=== PATIENT | male | born 1995 | race Caucasian/White ===

== ENCOUNTER 2020-04-19 13:06 | Emergency (ER) | payer BC, SELFPAY ==
[2020-04-19 13:10] VITALS: BP 126/67; PULSE 73; RESP 20; TEMP 36.8; O2SAT 96; BMI 27.6
--- NOTE | 2020-04-19 13:37 | HMH.EDUTC ---
[facility] [place] Disposition Clinical Impression: Plantar fasciitis of left foot, Athlete's foot on left Disposition: Home, Self-Care Condition on Discharge: Good Instructions: Plantar Fasciitis, DI for Plantar Fasciitis Additional Instructions: Take the ibuprofen regularly for the next few days. Rest for the next couple of days. Follow up with the financial services specialist (Dr. Milner) if your symptoms continue. GO TO THE ER FOR ANY WORSENING SYMPTOMS OR CONCERNS Prescriptions: Ibuprofen [Ibuprofen 800mg Tablet] 800 mg PO Q8HP PRN #30 tab PRN Reason: Moderate Pain Transmission Status: Received by [facility] # Clotrimazole 30 gm TP BID 14 Days #1 tube Transmission Status: Received by [facility] # Referrals: PCP,Karla [Primary Care Provider] - Eleni Milner DPM [Staff Physician] - Forms: Work/School Release Time of Disposition: 13:47 Medical Decision Making - Medical Records Medical records reviewed: No: I reviewed the patient's medical records. - Vidal Inquiry Pt receiving controlled substance: No Vital Signs: 04/19/20 13:10 04/19/20 14:08 Temperature 98.2 F 98.2 F Temperature Source Oral Pulse Rate 73 Pulse Rate [Right Brachial] 73 Respiratory Rate 20 20 Blood Pressure 126/67 Blood Pressure [Right Arm] 126/67 Blood Pressure Mean [Right Arm] 86 Blood Pressure Source [Right Arm] Automatic Cuff Blood Pressure Position [Right Arm] Sitting 02 Sat by Pulse Oximetry 96 Oxygen Delivery Method Room Air [facility] [place] HPI - General Stated complaint: left foot pain pain, no AO Time Seen by Provider: 04/19/20 13:37 Mode of Arrival: Ambulatory Source of Information: Patient Limitations: No Limitations Description of Symptoms (Recalled from Triage Doc. by RN): PATIENT C/O PAIN TO LEFT HEEL, BALLS AND OUTSIDE OF LEFT FOOT SINCE SUNDAY. HE STATES HE GOT HIS FOOT WET AT WORK AND IT REMAINED WET FOR APPROX 12 HOURS; PAIN STARTED AFTER THAT HEENT Symptoms (Recalled from RN notes): No Resp Symptoms (Recalled from RN notes): No Skin Symptoms (Recalled from RN notes): No MS Symptoms (Recalled from RN notes): No Functional Status (Recalled from RN notes): WNL - History of Present Illness Provider Complaint: He states that over the past 3 days he has had pain in the bottom of his left foot. He denies any injury. He states the symptoms are worse in the morning when he first gets up. He cannot identify anything that helps the pain other than sitting down and getting off his feet. He also has some areas of atheletes foot on that foot. - Related Data Previous Rx's Medication Instructions Recorded Ibuprofen [Ibuprofen 600mg 600 mg PO Q6HP PRN #30 tab 06/08/19 Tablet] Methocarbamol [Robaxin 500mg Tab] 500 mg PO BIDP PRN #30 tab 06/08/19 Clotrimazole 30 gm TP BID 14 Days #1 tube 04/19/20 Ibuprofen [Ibuprofen 800mg 800 mg PO Q8HP PRN #30 tab 04/19/20 Tablet] Allergies Allergy/AdvReac Type Severity Reaction Status Date / Time aripiprazole [From [facility]] Allergy Verified 06/08/19 15:41 - Worker's Comp Is this a Worker's Comp case?: No [facility] History - Hepatitis A Screen Drug use history?: No High risk sexual behaviors?: No History of sexually transmitted infection?: No Currently employed?: No Childcare worker?: No Do you have indoor plumbing?: Yes Do you have electricity?: Yes Attestation statement:: This patient has been screened for Hepatitis A risk factors. I have reviewed the patient's past medical history: Yes - Social History Alcohol Intake: never Occupational Status: other ROS Obtained: Yes All systems reviewed & no additional complaints - Constitutional Constitutional: Reports system reviewed and no additional complaints, except as docu - Eyes Eyes: Reports system reviewed and no additional complaints, except as docu - ENT Ears, Nose, Mouth, and Throat: Reports system reviewed and no additional complaints, except as docu - [facility]
[2020-04-19 14:08] VITALS: BP 126/67; PULSE 73; RESP 20; TEMP 36.8; O2SAT 96
== END 2020-04-19 14:10 | disposition home or self-care (01) ==
PROVIDERS: Emergency Provider Nurse Practitioner Family
DX: M72.2 Plantar fascial fibromatosis (principal); B35.2 Tinea manuum
CPT/HCPCS: 99201

== ENCOUNTER 2020-04-26 20:56 | Emergency (ER) | payer BC, SELFPAY ==
[2020-04-26 21:00] VITALS: BP 137/86; PULSE 108; RESP 20; TEMP 37; O2SAT 98; BMI 27.6
[2020-04-26 21:21] LABS: UTC Strep Screen (Rapid) Negative (Negative)
--- NOTE | 2020-04-26 21:21 | HMH.EDUTC ---
[facility] [place] Clinical Impression: Encounter for laboratory testing for COVID-19 virus Otitis media Qualifiers: Otitis media type: unspecified Laterality: left Qualified Code(s): H66.92 - Otitis media, unspecified, left ear Disposition: Home, Self-Care Condition on Discharge: Good Instructions: Middle Ear Infection Additional Instructions: *Monitor Temp, Over the counter Motrin or Tylenol as directed/as needed Tylenol every 4 hours and Motrin every 6 hours (as long as your family doctor has told you that you can take it) for fever or pain. and straight to ER if unable to lower temp less than 101.0 after medication given *Warm salt water gargles may help to soothe the throat *Throat Lozenges *Warm fluids like tea with honey may help to soothe the throat *Sleep elevated *Humidifier/Vaporizer *Flonase or nasocort as prescribed in each nostril daily but be aware that it may take 2-3 days before you notice improvement Your throat swab was sent for culture. Those results are typically sent to your primary care. Be sure to follow up in 2-3 days with your family doctor/primary care physician if no improvement so they can review those result and treat if necessary. If you don?t have a primary care doctor, I recommend you get one but in the mean time, you will have to return to a walk in clinic Follow up IMMEDIATELY for new or worsening symptoms or no Noticeable improvement over the next 48-72 hours. 911 for difficulty breathing or swallowing You was tested for today for COVID19 your test result should be back in the next 24-48 hours, you may call to the [facility] later today or tomorrow to see if your test results are back and the result [phone] [facility] hours are 9am-9pm You was given a handout with instructions for Self Quarantine and Self isolation for while you wait on test results and what to do if they are positive If you are positive the Health Dept will be contacting you also Prescriptions: Amoxicillin [Amoxicillin 500mg Cap] 500 mg PO TID #30 cap Transmission Status: Pending to [facility] [employer] #[id number] Referrals: PCP,No [Primary Care Provider] - As needed Time of Disposition: 21:28 Medical Decision Making - Vidal Inquiry Pt receiving controlled substance: No Vidal was queried for this patient: No Vital Signs: 04/26/20 21:00 Temperature 98.6 F Temperature Source Oral Pulse Rate [Right Brachial] 108 H Respiratory Rate 20 Blood Pressure [Right Arm] 137/86 Blood Pressure Mean [Right Arm] 103 Blood Pressure Source [Right Arm] Automatic Cuff Blood Pressure Position [Right Arm] Sitting 02 Sat by Pulse Oximetry 98 Oxygen Delivery Method Room Air Orders (Tests/Meds): ORDERS Category Date Time Status Covid-19 Nasal PCR Sendout Karl Routine Lab 04/26/20 21:00 Received [facility] [place] HPI - General Stated complaint: COVID Testing Time Seen by Provider: 04/26/20 21:21 Mode of Arrival: Ambulatory Source of Information: Patient Limitations: No Limitations Description of Symptoms (Recalled from Triage Doc. by RN): PATIENT REQUESTING COVID TEST D/T POSSIBLE EXPOSURE; C/O SORE THROAT, COUGH, HEADACHE, AND WEAKNESS X 2-3 DAYS HEENT Symptoms (Recalled from RN notes): Yes Resp Symptoms (Recalled from RN notes): Yes Skin Symptoms (Recalled from RN notes): No MS Symptoms (Recalled from RN notes): No Functional Status (Recalled from RN notes): WNL - History of Present Illness Provider Complaint: Patient state that he wants to get checked for COVID States that he may have been exposed States that he has been having sinus pain and pressure along with sore throat, ears feeling full, and feeling tired and headache for several days States that tonight he was feeling worse so he come in to get checked - Related Data Previous Rx's Medication Instructions Recorded Ibuprofen [Ibuprofen 600mg 600 mg PO Q6HP PRN #30 tab 06/08/19 Tablet] Methocarbamol [Robaxin 500mg Tab] 500 mg PO BIDP PRN #30 tab 06/08/19 Ap[facility]
[2020-04-26 21:22] LABS: UTC Influenza A Antigen Negative (Negative); UTC Influenza B Antigen Negative (Negative)
[2020-04-26 21:32] VITALS: BP 137/86; PULSE 108; RESP 20; TEMP 37; O2SAT 98
[2020-04-28 15:37] LABS: Covid-19 Nasal PCR Sendout Lex Not Detected
== END 2020-04-26 21:40 | disposition home or self-care (01) ==
PROVIDERS: Emergency Provider Nurse Practitioner
DX: Z20.828 Contact with and (suspected) exposure to other viral communicable diseases (principal); H66.92 Otitis media, unspecified, left ear; J45.909 Unspecified asthma, uncomplicated; Z88.8 Allergy status to other drugs, medicaments and biological substances
CPT/HCPCS: 87804; 87880; 99202; U0004

== ENCOUNTER 2020-08-31 15:44 | Emergency (ER) | payer SELFPAY ==
[2020-08-31 15:57] VITALS: BP 130/66; PULSE 87; RESP 16; TEMP 36.7; O2SAT 98; BMI 21.4
--- NOTE | 2020-08-31 16:02 | HMH.EDUTC ---
[facility] [place] Clinical Impression: Otitis media Qualifiers: Otitis media type: unspecified Laterality: left Qualified Code(s): H66.92 - Otitis media, unspecified, left ear Disposition: Home, Self-Care Condition on Discharge: Good Instructions: Middle Ear Infection, Middle Ear Infections (Alternative Therapy), Amoxicillin, Prednisone Additional Instructions: *Monitor Temp, Over the counter Motrin or Tylenol as directed/as needed Tylenol every 4 hours and Motrin every 6 hours (as long as your family doctor has told you that you can take it) for fever or pain. and straight to ER if unable to lower temp less than 101.0 after medication given *Warm salt water gargles may help to soothe the throat *Throat Lozenges *Warm fluids like tea with honey may help to soothe the throat *Sleep elevated *Humidifier/Vaporizer *Flonase 2 sprays in each nostril daily but be aware that it may take 2-3 days before you notice improvement Take medication as prescribed Return if needed Straight to ER if any life threatening symptoms Follow up IMMEDIATELY for new or worsening symptoms or no Noticeable improvement over the next 48-72 hours. 911 for difficulty breathing or swallowing Prescriptions: Amoxicillin [Amoxicillin 500mg Cap] 500 mg PO TID #30 cap Transmission Status: Pending to [facility] # predniSONE [Deltasone 10mg tablet] 10 mg PO BID 5 Days #10 tab Transmission Status: Pending to [facility] # Referrals: PCP,No [Primary Care Provider] - As needed Time of Disposition: 16:13 Medical Decision Making - Vidal Inquiry Pt receiving controlled substance: No Vidal was queried for this patient: No Vital Signs: 08/31/20 15:57 Temperature 98.1 F Temperature Source Oral Pulse Rate [Right] 87 Respiratory Rate 16 Blood Pressure [Right Arm] 130/66 Blood Pressure Mean [Right Arm] 87 Blood Pressure Source [Right Arm] Automatic Cuff Blood Pressure Position [Right Arm] Sitting 02 Sat by Pulse Oximetry 98 Oxygen Delivery Method Room Air [facility] [place] - General Stated complaint: Upper Resp problems Time Seen by Provider: 08/31/20 16:02 Mode of Arrival: Ambulatory Source of Information: Patient Limitations: No Limitations Description of Symptoms (Recalled from Triage Doc. by RN): pt c/o ears hurting and headache, denies fever HEENT Symptoms (Recalled from RN notes): Yes (cough, ear pain) Resp Symptoms (Recalled from RN notes): No Skin Symptoms (Recalled from RN notes): No MS Symptoms (Recalled from RN notes): No Functional Status (Recalled from RN notes): na - History of Present Illness Provider Complaint: Patient states that he has been having pain in his left ear for over a week and feels pain and pressure in it like he has fluid in it and it has made him feel a little off balance States that also wanted to see if we had samples of inhalers because he has lost his insurance - Related Data Previous Rx's Medication Instructions Recorded Ibuprofen [Ibuprofen 600mg 600 mg PO Q6HP PRN #30 tab 06/08/19 Tablet] Methocarbamol [Robaxin 500mg Tab] 500 mg PO BIDP PRN #30 tab 06/08/19 Clotrimazole 30 gm TP BID 14 Days #1 tube 04/19/20 Ibuprofen [Ibuprofen 800mg 800 mg PO Q8HP PRN #30 tab 04/19/20 Tablet] Amoxicillin [Amoxicillin 500mg 500 mg PO TID #30 cap 04/26/20 Cap] Amoxicillin [Amoxicillin 500mg 500 mg PO TID #30 cap 08/31/20 Cap] predniSONE [Deltasone 10mg tablet] 10 mg PO BID 5 Days #10 tab 08/31/20 Allergies Allergy/AdvReac Type Severity Reaction Status Date / Time aripiprazole [From [facility]] Allergy Verified 06/08/19 15:41 - Worker's Comp Is this a Worker's Comp case?: No Is this an H Worker's Comp?: No Is this a Yasmeen Worker's Comp?: No [facility] History - Hepatitis A Screen Drug use history?: No High risk sexual behaviors?: No History of sexually transmitted infection?: No Currently employed?: No Childcare worker?: No Do you have indoor pl
[2020-08-31 16:25] VITALS: BP 130/66; PULSE 87; RESP 16; TEMP 36.7; O2SAT 98
== END 2020-08-31 16:25 | disposition home or self-care (01) ==
PROVIDERS: Emergency Provider Nurse Practitioner
DX: H66.92 Otitis media, unspecified, left ear (principal)
CPT/HCPCS: 99202; G0463

== ENCOUNTER 2020-12-03 13:11 | Emergency (ER) | payer BC, SELFPAY ==
[2020-12-03 13:16] VITALS: BP 126/70; PULSE 72; RESP 16; TEMP 36.5; O2SAT 100; BMI 28.0
[2020-12-03 13:34] VITALS: BP 122/75; PULSE 73; RESP 16; TEMP 36.5
--- NOTE | 2020-12-03 13:49 | HMH.EDUTC ---
[facility] [place] Disposition Clinical Impression: Right leg pain, Strain of right calf muscle Disposition: Home, Self-Care Condition on Discharge: Good Additional Instructions: Rest the extremity, apply ice for 15 minutes as tolerated three or four times per day, Elevate the extremity as tolerated while you are resting. Take ibuprofen for pain. I sent in a prescription to your pharmacy. Follow up with Dr. Vernon (orthopedics) if you continue to have issues. I put in a referral but you need to call his office and schedule an appointment. Follow up with your regular doctor. GO TO THE ER FOR ANY WORSENING SYMPTOMS Prescriptions: Ibuprofen [Ibuprofen 800mg Tablet] 800 mg PO Q8HP PRN #30 tab PRN Reason: Moderate Pain Transmission Status: Received by [facility] #[id number] Referrals: Provider,MD Nichole [Primary Care Provider] - Luca Vernon MD [Staff Physician] - Forms: Work/School Release Time of Disposition: 13:51 Medical Decision Making - Medical Records Medical records reviewed: No: I reviewed the patient's medical records. - Vidal Inquiry Pt receiving controlled substance: No Vital Signs: 12/03/20 13:16 12/03/20 13:34 Temperature 97.7 F 97.7 F Temperature Source Oral Pulse Rate 73 Pulse Rate [Right] 72 Respiratory Rate 16 16 Blood Pressure 122/75 Blood Pressure [Right Arm] 126/70 Blood Pressure Mean [Right Arm] 88 02 Sat by Pulse Oximetry 100 Oxygen Delivery Method Room Air Medical Decision Narrative: He has a negative samuel's sign. [facility] [place] HPI - General Stated complaint: leg pain, no accident Time Seen by Provider: 12/03/20 13:20 Mode of Arrival: Ambulatory Source of Information: Patient Limitations: No Limitations Description of Symptoms (Recalled from Triage Doc. by RN): pt c/o of R leg pain from the top of his ankle to upper leg. pt thinks he may have pulled something during his six hour physical for [employer]. pt also states the arch in his R foot has been hurting since he has been placing most of his wt on that leg. 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 He did this physical evaluation 3 days ago, then that evening he began having right calf pain that is worse with walking. He denies any personal or family history of blood clots. He denies any swelliing or warmth of the affected leg. He denies any chest pain or shortness of breath. - Related Data Previous Rx's Medication Instructions Recorded Ibuprofen [Ibuprofen 600mg 600 mg PO Q6HP PRN #30 tab 06/08/19 Tablet] Methocarbamol [Robaxin 500mg Tab] 500 mg PO BIDP PRN #30 tab 06/08/19 Clotrimazole 30 gm TP BID 14 Days #1 tube 04/19/20 Ibuprofen [Ibuprofen 800mg 800 mg PO Q8HP PRN #30 tab 04/19/20 Tablet] Amoxicillin [Amoxicillin 500mg 500 mg PO TID #30 cap 04/26/20 Cap] Amoxicillin [Amoxicillin 500mg 500 mg PO TID #30 cap 08/31/20 Cap] predniSONE [Deltasone 10mg tablet] 10 mg PO BID 5 Days #10 tab 08/31/20 Ibuprofen [Ibuprofen 800mg 800 mg PO Q8HP PRN #30 tab 12/03/20 Tablet] Allergies Allergy/AdvReac Type Severity Reaction Status Date / Time aripiprazole [From [facility]] Allergy Verified 12/03/20 13:19 - Worker's Comp Is this a Worker's Comp case?: No [facility] History - Hepatitis A Screen Drug use history?: No High risk sexual behaviors?: No History of sexually transmitted infection?: No Currently employed?: No Childcare worker?: No Do you have indoor plumbing?: Yes Do you have electricity?: Yes Attestation statement:: This patient has been screened for Hepatitis A risk factors. I have rev
== END 2020-12-03 14:05 | disposition home or self-care (01) ==
PROVIDERS: Emergency Provider Nurse Practitioner Family
DX: S86.811A Strain of other muscle(s) and tendon(s) at lower leg level, right leg, initial encounter (principal); X50.0XXA Overexertion from strenuous movement or load, initial encounter; Y92.89 Other specified places as the place of occurrence of the external cause

== ENCOUNTER 2020-12-31 19:29 | Emergency (ER) | payer BC, SELFPAY ==
[2020-12-31 19:35] VITALS: BP 148/84; PULSE 97; RESP 16; TEMP 36.4; O2SAT 98; BMI 28.0
--- NOTE | 2020-12-31 19:48 | HMH.EDUTC ---
[facility] [place] Disposition Clinical Impression: Otitis media Qualifiers: Otitis media type: unspecified Laterality: left Qualified Code(s): H66.92 - Otitis media, unspecified, left ear Disposition: Home, Self-Care Condition on Discharge: Good Instructions: Middle Ear Infections (Alternative Therapy), Middle Ear Infection, Amoxicillin Additional Instructions: *Monitor Temp, Over the counter Motrin or Tylenol as directed/as needed Tylenol every 4 hours and Motrin every 6 hours (as long as your family doctor has told you that you can take it) for fever or pain. and straight to ER if unable to lower temp less than 101.0 after medication given *Warm salt water gargles may help to soothe the throat *Throat Lozenges *Warm fluids like tea with honey may help to soothe the throat *Sleep elevated *Humidifier/Vaporizer *Flonase 2 sprays in each nostril daily but be aware that it may take 2-3 days before you notice improvement Follow up IMMEDIATELY for new or worsening symptoms or no Noticeable improvement over the next 48-72 hours. 911 for difficulty breathing or swallowing You were tested for today for COVID19 your test result should be back in the next 24-48 hours, you may call to the [facility] to see if your test results are back in the next 48 hours [phone] [facility] hours are 9am-9pm You was given a handout with instructions for Self Quarantine and Self isolation for while you wait on test results and what to do if they are positive If you are positive the Health Dept will be contacting you also Prescriptions: Albuterol Sulfate [Proventil-HFA 90mcg/puff Inh] 1 - 2 puffs IH Q4HP PRN #1 inh PRN Reason: Shortness Of Breath Transmission Status: Pending to [facility] # Amoxicillin [Amoxicillin 875MG Tab] 875 mg PO Q12H #20 tab Transmission Status: Pending to [facility] # Fluticasone Propionate [Flonase 50mcg nasal spray 16gm] 1 spr NS DAILY #1 bottle Transmission Status: Pending to [facility] # Referrals: Provider,Referral, MD [Primary Care Provider] - As needed Time of Disposition: 20:03 Medical Decision Making - Vidal Inquiry Pt receiving controlled substance: No Vidal was queried for this patient: No Vital Signs: 12/31/20 19:35 Temperature 97.5 F L Temperature Source Oral Pulse Rate [Left] 97 H Respiratory Rate 16 Blood Pressure [Right Arm] 148/84 H Blood Pressure Mean [Right Arm] 105 02 Sat by Pulse Oximetry 98 Orders (Tests/Meds): ORDERS Category Date Time Status Covid-19 Nasal PCR ([facility]) Routine Lab 12/31/20 19:40 Received [facility] [place] HPI - General Stated complaint: covid test Time Seen by Provider: 12/31/20 19:48 Mode of Arrival: Ambulatory Source of Information: Patient Limitations: No Limitations Description of Symptoms (Recalled from Triage Doc. by RN): pt states he is soa (hx of asthma and is out of his rescue inhaler) and dizziness. HEENT Symptoms (Recalled from RN notes): Yes (dizzy) Resp Symptoms (Recalled from RN notes): Yes (soa) Skin Symptoms (Recalled from RN notes): No MS Symptoms (Recalled from RN notes): No Functional Status (Recalled from RN notes): na - History of Present Illness Provider Complaint: Patient states that he has been having pressure like feeling in his ears State that he gets frequent ear infections States that at times when he moves quickly he feels a little dizzy States that he also a history of asthma and he wanted to get another inhaler his is and not helping States that he also needed to get tested for COVID - Related Data Previous Rx's Medication Instructions Recorded Ibuprofen [Ibuprofen 600mg 600 mg PO Q6HP PRN #30 tab 06/08/19 Tablet] Methocarbamol [Robaxin 500mg Tab] 500 mg PO BIDP PRN #30 tab 06/08/19 Clotrimazole 30 gm TP BID 14 Days #1 tube 04/19/20 Ibuprofen [Ibuprofen 800mg 800 mg PO Q8HP PRN #30 tab 04/19/20 Tablet] Amoxicillin [Amoxicillin 500mg 500 mg PO TID #30 cap 04/26/20 Cap]
[2020-12-31 19:59] VITALS: BP 148/84; PULSE 97; RESP 16; TEMP 36.4
== END 2020-12-31 20:04 | disposition home or self-care (01) ==
PROVIDERS: Emergency Provider Nurse Practitioner
DX: H66.92 Otitis media, unspecified, left ear (principal); J45.909 Unspecified asthma, uncomplicated; Z20.822 Contact with and (suspected) exposure to COVID-19
CPT/HCPCS: 99202; G0463; U0003

== ENCOUNTER 2021-01-07 09:49 | Emergency (ER) | payer SELFPAY ==
[2021-01-07 09:55] VITALS: BP 112/77; PULSE 73; RESP 18; TEMP 36.7; O2SAT 96; BMI 28.0
--- NOTE | 2021-01-07 10:05 | XR_ITS ---
PROCEDURE: XR TIBIA FIBULA LT 2V CLINICAL INDICATION: PAIN TO LEFT CALF COMPARISON: No exams were available for comparison FINDINGS: No fracture or dislocation. No lytic or blastic change. There is normal mineralization. The joint spaces are well-preserved. No significant degenerative/arthritic changes. No erosive changes evident. Other findings:None. IMPRESSION: No acute findings. Dictated by: Weston Coles MD 01/07/2021 11:13 Weston oCles MD in [place] 01/07/2021 11:13
--- NOTE | 2021-01-07 10:12 | HMH.EDUTC ---
[facility] [place]: Strain of calf muscle Qualifiers: Encounter type: initial encounter Laterality: left Qualified Code(s): S86.812A - Strain of other muscle(s) and tendon(s) at lower leg level, left leg, initial encounter Disposition: Home, Self-Care Condition on Discharge: Good Instructions: Calf Muscle Strain, DI for Calf Muscle Strain, How To Perform RICE (Rest, Ice, Compress, Elevate), How to Apply an Prosper Wrap Additional Instructions: *weight bearing as tolerated *RICE, Rest the extremity, Ice 15-20 minutes 3-4 times daily, Compress- wear the prosper wrap as discussed as much as possible to help reduce swelling and pain, Elevate the extremity when at rest *Prosper wrap is for support and help control swelling, use it except in the shower. Be sure that is not to tight but not to loose either *Elevate when resting *Ibuprofen every 6-8 hours as needed for pain an inflammation. If need something more can take Tylenol in between doses of Ibuprofen to help Immediately follow up with your family doctor for new or worsening of symptoms, or no noticeable improvement over the next 3-5 days Prescriptions: Ibuprofen [Ibuprofen 600mg Tablet] 600 mg PO Q6HP PRN #20 tab PRN Reason: Moderate Pain Transmission Status: Received by [facility] #[id number] Referrals: Provider,Referral, [Primary Care Provider] - As needed Forms: Work/School Release Time of Disposition: 11:00 Medical Decision Making - Vidal Inquiry Pt receiving controlled substance: No Vidal was queried for this patient: No Vital Signs: 01/07/21 09:55 01/07/21 10:23 Temperature 98.0 F 98.0 F Temperature Source Temporal Artery Scan Pulse Rate 73 Pulse Rate [Right Brachial] 73 Respiratory Rate 18 18 Blood Pressure 112/77 Blood Pressure [Right Arm] 112/77 Blood Pressure Mean [Right Arm] 88 Blood Pressure Source [Right Arm] Automatic Cuff Blood Pressure Position [Right Arm] Sitting 02 Sat by Pulse Oximetry 96 Oxygen Delivery Method Room Air Orders (Tests/Meds): ORDERS Category Date Time Status Tibia/fibula XR left 2 views [XR tibia fibula LT 2V] Exams 01/07/21 10:05 Taken Stat - Radiology Data #1 Image(s): Tib/Fib Image Reviewed: Yes I reviewed the patient's radiology image Preliminary Findings: No Fracture [place]en [facility] [place] - General Stated complaint: a/o 01/07 slipped left calf injury Time Seen by Provider: 01/07/21 10:12 Mode of Arrival: Ambulatory Source of Information: Patient Limitations: No Limitations Description of Symptoms (Recalled from Triage Doc. by RN): PATIENT STATES HE FEELS LIKE HE PULLED HIS LEFT CALF MUSCLE WHEN HE SLIPPED AND CAUGHT HIMSELF FROM FALLING THIS MORNING HEENT Symptoms (Recalled from RN notes): No Resp Symptoms (Recalled from RN notes): No Skin Symptoms (Recalled from RN notes): No MS Symptoms (Recalled from RN notes): Yes Functional Status (Recalled from RN notes): WNL - History of Present Illness Provider Complaint: Patient state that he was walking to his car this morning and he stepped on a slick mat and hope did the splits States that he feels like he may have pulled something in his left calf area States that work sent him to get checked - Related Data Home Medications Medication Instructions Recorded Confirmed Fluticasone/Vilanterol [Breo 1 inh IH DAILY 01/07/21 01/07/21 Ellipta 100-25 Mcg INH] Previous Rx's Medication Instructions Recorded Ibuprofen [Ibuprofen 600mg 600 mg PO Q6HP PRN #20 tab 01/07/21 Tablet] Allergies Allergy/AdvReac Type Severity Reaction Status Date / Time aripiprazole [From [facility]] Allergy Verified 12/03/20 13:19 - Worker's Comp Is this a Worker's Comp case?: No [facility] History - Hepatitis A Screen Drug use history?: No High risk sexual behaviors?: No History of sexually transmitted infection?: No Currently employed?: No Childcare worker?: No Do you have indoor plumbing?: Yes Do you have el
[2021-01-07 10:23] VITALS: BP 112/77; PULSE 73; RESP 18; TEMP 36.7; O2SAT 96
== END 2021-01-07 10:59 | disposition home or self-care (01) ==
PROVIDERS: Emergency Provider Nurse Practitioner
DX: S86.812A Strain of other muscle(s) and tendon(s) at lower leg level, left leg, initial encounter (principal); W01.0XXA Fall on same level from slipping, tripping and stumbling without subsequent striking against object, initial encounter; Y92.89 Other specified places as the place of occurrence of the external cause
CPT/HCPCS: 73590; 99202; G0463

== ENCOUNTER → 2021-02-23 16:40 | Outpatient (CLI) | payer BC, SELFPAY | PROVIDERS: Visit Provider Nurse Practitioner | DX: Z20.822 Contact with and (suspected) exposure to COVID-19 (principal) | CPT/HCPCS: C9803; U0003; U0005 ==

== ENCOUNTER 2021-02-24 15:18 | Emergency (ER) | payer BC, SELFPAY ==
[2021-02-24 15:32] VITALS: BP 132/77; PULSE 91; RESP 19; TEMP 36.6; O2SAT 98; BMI 29.3
[2021-02-24 15:51] VITALS: BP 132/77; PULSE 91; RESP 19; TEMP 36.6
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
[2021-02-24 16:01] LABS: Adenovirus,PCR Not Detected (NotDetected); Bordetella Pertussis Not Detected (NotDetected); Chlamydophila Pneumoniae, PCR Not Detected (NotDetected); Coronavirus 19, PCR Not Detected (NotDetected); Coronavirus 229E Not Detected (NotDetected); Coronavirus NL63 Not Detected (NotDetected); Coronavirus OC43 Not Detected (NotDetected); Coronovirus HKU1,PCR Not Detected (NotDetected); Human Metapneumovirus Not Detected (NotDetected); Influenza A, PCR Not Detected (NotDetected); Influenza AH1, 2009 Not Detected (NotDetected); Influenza AH1, PCR Not Detected (NotDetected); Influenza AH3,PCR Not Detected (NotDetected); Influenza B, PCR Not Detected (NotDetected); Mycoplasma Pneumoniae, PCR Not Detected (NotDetected); Parainfluenza 1, PCR Not Detected (NotDetected); Parainfluenza 2, PCR Not Detected (NotDetected); Parainfluenza 3, PCR Not Detected (NotDetected); Parainfluenza 4, PCR Not Detected (NotDetected); Respiratory Syncytial Virus Not Detected (NotDetected); Rhinovirus/Enterovirus Not Detected (NotDetected)
== END 2021-02-24 16:04 | disposition home or self-care (01) ==
PROVIDERS: Emergency Provider Nurse Practitioner
DX: J06.9 Acute upper respiratory infection, unspecified (principal); Z20.822 Contact with and (suspected) exposure to COVID-19
CPT/HCPCS: 87581; 87632; 87798; 99203; C9803; G0463; U0003; U0005

== ENCOUNTER → 2021-05-29 17:09 | Outpatient (CLI) | payer BC, SELFPAY | PROVIDERS: Visit Provider Nurse Practitioner Family | DX: Z20.822 Contact with and (suspected) exposure to COVID-19 (principal) | CPT/HCPCS: C9803; U0003; U0005 ==

== ENCOUNTER → 2021-06-05 14:11 | Outpatient (CLI) | payer BC, SELFPAY | PROVIDERS: Visit Provider Nurse Practitioner Family | DX: Z20.822 Contact with and (suspected) exposure to COVID-19 (principal) | CPT/HCPCS: C9803; U0003; U0005 ==

== ENCOUNTER → 2021-06-13 14:31 | Outpatient (CLI) | payer BC, SELFPAY | PROVIDERS: Visit Provider Nurse Practitioner | DX: U07.1 COVID-19 (principal) | CPT/HCPCS: C9803; U0003; U0005 ==

== ENCOUNTER → 2021-07-27 15:33 | Outpatient (CLI) | payer BC, SELFPAY ==
[2021-07-27 19:08] LABS: Amphetamine/Metha Screen,Urine Negative ng/ml (<1000)
[2021-07-27 19:09] LABS: Barbiturates Screen,Urine Negative ng/ml (<200); Benzodiazepines Screen,Urine Negative ng/ml (<200)
[2021-07-27 19:10] LABS: Cannabinoid Screen,Urine Negative ng/ml (<50)
[2021-07-27 19:11] LABS: Cocaine Screen,Urine Negative ng/ml (<300); Methadone Screen,Urine Negative ng/ml (<300)
[2021-07-27 19:12] LABS: Opiate Screen,Urine Negative ng/ml (<300)
[2021-07-27 19:13] LABS: Phencyclidine Screen,Urine Negative ng/ml (<25)
== END ==
PROVIDERS: Visit Provider Registered Nurse Emergency
DX: F90.0 Attention-deficit hyperactivity disorder, predominantly inattentive type (principal)
CPT/HCPCS: 80305

== ENCOUNTER 2021-08-15 15:14 | Emergency (ER) | payer BC, SELFPAY ==
[2021-08-15 17:52] VITALS: BP 0/0; PULSE 0; RESP 0; TEMP -17.7; TEMP 0
== END 2021-08-15 17:53 | disposition left against medical advice (07) ==
LOC: UTC 15:18
PROVIDERS: Emergency Provider Nurse Practitioner Family
DX: Z53.21 Procedure and treatment not carried out due to patient leaving prior to being seen by health care provider (principal)

== ENCOUNTER 2021-08-15 18:22 | Emergency (ER) | payer BC, SELFPAY ==
[2021-08-15 19:30] VITALS: BP 131/79; PULSE 91; RESP 19; TEMP 36.9; O2SAT 98; BMI 27.1
[2021-08-15 19:48] LABS: UTC Influenza A Antigen Negative (Negative); UTC Influenza B Antigen Negative (Negative); UTC Strep Screen (Rapid) Negative (Negative)
--- NOTE | 2021-08-15 20:01 | HMH.EDUTC ---
[facility] [place] Impression: Viral syndrome Pharyngitis Qualifiers: Pharyngitis/tonsillitis etiology: unspecified etiology Qualified Code(s): J02.9 - Acute pharyngitis, unspecified Disposition: Home, Self-Care Condition on Discharge: Good Instructions: Preventing the Spread of Coronavirus Discharge Instructions, DI for Pharyngitis/Tonsillopharyngitis -- Adult Additional Instructions: Drink plenty of fluids. Take tylenol or ibuprofen for pain or fever. Take the medications as directed. Follow up with your regular doctor. GO TO THE ER FOR ANY WORSENING SYMPTOMS Quarantine until you know the results of your covid-19 test. Notify your school or workplace of your results and follow their instructions regarding return to work/school. Prescriptions: Brompheniramine/Pseudoephed/Dm [Bromfed Dm Cough Syrup] 5 ml PO Q6HP PRN #240 ml PRN Reason: Cough Transmission Status: Pending to [id number] Azithromycin [Z-Gautam 250mg Tab*] 250 mg PO UD DOSE PK #6 tab [facility] Referrals: Provider,Referral, [Primary Care Provider] - Forms: Work/School Release Time of Disposition: 20:40 Medical Decision Making - Medical Records Medical records reviewed: No: I reviewed the patient's medical records. - Vidal Inquiry Pt receiving controlled substance: No Vital Signs: 08/15/21 19:30 Temperature 98.4 F Temperature Source Oral Pulse Rate [Right Brachial] 91 H Respiratory Rate 19 Blood Pressure [Right Arm] 131/79 Blood Pressure Mean [Right Arm] 96 Blood Pressure Source [Right Arm] Automatic Cuff Blood Pressure Position [Right Arm] Sitting 02 Sat by Pulse Oximetry 98 Oxygen Delivery Method Room Air - Lab Data Lab results reviewed: Yes: I reviewed the patient's lab results. Lab Results 08/15/21 19:39: Influenza Type A Ag Negative, Influenza Type B Ag Negative 08/15/21 19:39: Strep Scn Rapid Clinic Negative Orders (Tests/Meds): ORDERS Category Date Time Status Covid-19 Nasal PCR ([facility]) Routine Lab 08/15/21 19:36 Received Strep Screen Confirmation Stat Micro 08/15/21 19:39 [place] [facility] [place] - General Stated complaint: runny nose,GATES,nausa, body aches Time Seen by Provider: 08/15/21 20:01 Mode of Arrival: Ambulatory Source of Information: Patient Limitations: No Limitations Description of Symptoms (Recalled from Triage Doc. by RN): PATIENT C/O HEADACHE, BODY ACHES, SORE THROAT, RUNNY NOSE, AND NAUSEA SINCE SUNDAY HEENT Symptoms (Recalled from RN notes): Yes Resp Symptoms (Recalled from RN notes): No Skin Symptoms (Recalled from RN notes): No MS Symptoms (Recalled from RN notes): No Functional Status (Recalled from RN notes): WNL - History of Present Illness Provider Complaint: He states that he began to feel bad last night. He has a sore throat, body aches, chills, fever, and a dry cough. He had covid about 8 months ago and he states that he felt - Related Data Home Medications Medication Instructions Recorded Confirmed Fluticasone/Vilanterol [Breo 1 inh IH DAILY 01/07/21 01/07/21 Ellipta 100-25 Mcg INH] Previous Rx's Medication Instructions Recorded Ibuprofen [Ibuprofen 600mg 600 mg PO Q6HP PRN #20 tab 01/07/21 Tablet] Brompheniramine/Pseudoephed/Dm 5 - 10 ml PO Q46H PRN #200 ml 02/24/21 [Bromfed Dm Cough Syrup] Ondansetron [Zofran 4mg ODT] 4 mg PO TIDP PRN #20 tab 02/24/21 Azithromycin [Z-Gautam 250mg Tab*] 250 mg PO UD DOSE PK #6 tab 08/15/21 Brompheniramine/Pseudoephed/Dm 5 ml PO Q6HP PRN #240 ml 08/15/21 [Bromfed Dm Cough Syrup] Allergies Allergy/AdvReac Type Severity Reaction Status Date / Time aripiprazole [From [facility]] Allergy Verified 12/03/20 13:19 - Worker's Comp Is this a Worker's Comp case?: No [facility] History - Hepatitis A Screen Drug use history?: No High risk sexual behaviors?: No History of sexually transmitted infection?: No Currently employed?: No
[2021-08-15 20:41] VITALS: BP 131/79; PULSE 91; RESP 19; TEMP 36.9; O2SAT 98
== END 2021-08-15 20:43 | disposition home or self-care (01) ==
PROVIDERS: Emergency Provider Nurse Practitioner Family
DX: J02.9 Acute pharyngitis, unspecified (principal)
CPT/HCPCS: 87804; 87880; 99212; C9803; G0463; U0003; U0005

== ENCOUNTER 2021-09-22 17:38 | Emergency (ER) | payer OTHER, SELFPAY ==
[2021-09-22 17:50] VITALS: PULSE 108; RESP 20; O2SAT 97; BMI 29.2
[2021-09-22 18:00] VITALS: BP 136/86; PULSE 76; RESP 16; TEMP 37; O2SAT 100; BMI 29.2
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
[2021-09-22 19:53] VITALS: BP 136/86; PULSE 76; RESP 18; TEMP 37; O2SAT 100
== END 2021-09-22 19:55 | disposition home or self-care (01) ==
PROVIDERS: Emergency Provider Nurse Practitioner
DX: S29.012A Strain of muscle and tendon of back wall of thorax, initial encounter (principal); V43.52XA Car driver injured in collision with other type car in traffic accident, initial encounter; Y92.488 Other paved roadways as the place of occurrence of the external cause
CPT/HCPCS: 72040; 72070; 99213; G0463

== ENCOUNTER 2022-01-24 16:40 | Emergency (ER) | payer BC, SELFPAY ==
--- NOTE | 2022-01-24 17:33 | HMH.EDUTC ---
[facility] [place] Impression: Viral syndrome, COVID-19 Disposition: Home, Self-Care Condition on Discharge: Good Instructions: DI for COVID-19 (Suspected or Confirmed ), Preventing the Spread of Coronavirus Discharge Instructions Additional Instructions: Drink plenty of fluids. Take tylenol or ibuprofen for pain or fever. Take the medications as directed. Follow up with your regular doctor. GO TO THE ER FOR ANY WORSENING SYMPTOMS Quarantine until you know the results of your covid-19 test. Notify your school or workplace of your results and follow their instructions regarding return to work/school. Prescriptions: Benzonatate [Benzonatate 100mg cap] 100 mg PO TIDP PRN #30 cap PRN Reason: Cough Transmission Status: Received by [id number] Promethazine HCl [Phenergan 25mg tab] 25 mg PO Q6H PRN #15 tab PRN Reason: Nausea And Vomiting Transmission Status: Received by [id number] Referrals: Provider,Referral, MD [Primary Care Provider] - Forms: Work/School Release Time of Disposition: 17:47 Medical Decision Making - Medical Records Medical records reviewed: No: I reviewed the patient's medical records. - Vidal Inquiry Pt receiving controlled substance: No Vital Signs: 01/24/22 17:49 01/24/22 17:54 Temperature 98.4 F 98.4 F Temperature Source Oral Pulse Rate 104 H Pulse Rate [Left] 104 H Respiratory Rate 16 16 Blood Pressure 126/78 Blood Pressure [Right Arm] 126/78 Blood Pressure Mean [Right Arm] 94 02 Sat by Pulse Oximetry 98 Orders (Tests/Meds): ORDERS Category Date Time Status Covid-19 Nasal PCR ([facility]) Routine Lab 01/24/22 17:33 [place] [facility] [place] - General Stated complaint: covid test Time Seen by Provider: 01/24/22 17:33 - History of Present Illness Provider Complaint: He states that for the past 2 day he has had sinus congestion, body aches, chills and he has felt bad. - Related Data Home Medications Medication Instructions Recorded Confirmed Fluticasone/Vilanterol [Breo 1 inh IH DAILY 01/07/21 01/07/21 Ellipta 100-25 Mcg INH] Previous Rx's Medication Instructions Recorded Ibuprofen [Ibuprofen 600mg 600 mg PO Q6HP PRN #20 tab 01/07/21 Tablet] Brompheniramine/Pseudoephed/Dm 5 - 10 ml PO Q46H PRN #200 ml 02/24/21 [Bromfed Dm Cough Syrup] Ondansetron [Zofran 4mg ODT] 4 mg PO TIDP PRN #20 tab 02/24/21 Azithromycin [Z-Gautam 250mg Tab*] 250 mg PO UD DOSE PK #6 tab 08/15/21 Brompheniramine/Pseudoephed/Dm 5 ml PO Q6HP PRN #240 ml 08/15/21 [Bromfed Dm Cough Syrup] Cyclobenzaprine HCl [Flexeril 10mg 10 mg PO Q8HP PRN #15 tab 09/22/21 tablet] Etodolac 200 mg PO Q8HP PRN #20 cap 09/22/21 Benzonatate [Benzonatate 100mg 100 mg PO TIDP PRN #30 cap 01/24/22 cap] Promethazine HCl [Phenergan 25mg 25 mg PO Q6H PRN #15 tab 01/24/22 tab] Allergies Allergy/AdvReac Type Severity Reaction Status Date / Time aripiprazole [From [facility]] Allergy Verified 12/03/20 13:19 [facility] History - Hepatitis A Screen Attestation statement:: This patient has been screened for Hepatitis A risk factors. I have reviewed the patient's past medical history: Yes - Social History Alcohol Intake: never Occupational Status: other ROS Obtained: Yes All systems reviewed & no additional complaints - Constitutional Constitutional: Reports as per HPI - Eyes Eyes: Denies eye discharge - ENT Ears, Nose, Mouth, and Throat: Reports as per HPI - Cardiovascular Cardiovascular: Denies chest pain Physical Exam - General General appearance: alert, in no apparent distress - Head Head exam: atraumatic, normocephalic, normal inspection - Eye Eye exam: Present: normal appearance, PERRL, EOMI - ENT ENT exam: Present: normal exam, normal oropharynx, mucous membranes moist, TM's normal bilaterally, normal external ear exam - Neck Neck exam: Present: normal inspection, full ROM, tra
[2022-01-24 17:49] VITALS: BP 126/78; PULSE 104; RESP 16; TEMP 36.9; O2SAT 98; BMI 28.8
[2022-01-24 17:54] VITALS: BP 126/78; PULSE 104; RESP 16; TEMP 36.9
== END 2022-01-24 17:55 | disposition home or self-care (01) ==
PROVIDERS: Emergency Provider Nurse Practitioner Family
DX: U07.1 COVID-19 (principal); Z79.899 Other long term (current) drug therapy; Z88.8 Allergy status to other drugs, medicaments and biological substances
CPT/HCPCS: 99212; C9803; G0463; U0003; U0005

== ENCOUNTER 2022-01-30 13:50 | Emergency (ER) | payer BC, SELFPAY ==
[2022-01-30 16:15] VITALS: BP 139/87; PULSE 81; RESP 19; TEMP 36.7; O2SAT 98; BMI 30.1
--- NOTE | 2022-01-30 16:31 | EXP.UTC ---
Discharge Plan Disposition Patient Disposition: Home, Self-Care Prescriptions Prescriptions: No Action azithromycin 250 MG tablet 250 mg PO UD DOSE PK Qty: 6 0RF Rx Instructions: Take two (2) tablets today, then one (1) tablet days #2 thru #5 [id number]-[id number] 118 ML syrup 5 ml PO Q6HP PRN (Reason: Cough) Qty: 240 0RF cyclobenzaprine 10 MG tablet 10 mg PO Q8HP PRN (Reason: Muscle Spasm) Qty: 15 0RF etodolac 200 MG capsule 200 mg PO Q8HP PRN (Reason: Moderate Pain) Qty: 20 0RF benzonatate 100 MG capsule 100 mg PO TIDP PRN (Reason: Cough) Qty: 30 0RF promethazine 25 MG tablet 25 mg PO Q6H PRN (Reason: Nausea And Vomiting) Qty: 15 0RF fluticasone furoate-vilanterol 1 EACH blister with device 1 inh IH DAILY ibuprofen 600 MG tablet 600 mg PO Q6HP PRN (Reason: Moderate Pain) Qty: 20 0RF dmnmlbfcifxzibw-xbpakykkv-EB 118 ML syrup 5 - 10 ml PO Q46H PRN (Reason: Cough) Qty: 200 0RF ondansetron 4 MG tablet,disintegrating 4 mg PO TIDP PRN (Reason: Nausea) Qty: 20 0RF Referrals Follow up/Referrals: Provider,Referral, MD [Primary Care Provider] - See instructions Activity Restrictions/Add. Instructions Additional Instructions/Restrictions: *Monitor Temp, Over the counter Motrin or Tylenol as directed/as needed Tylenol every 4 hours and Motrin every 6 hours (as long as your family doctor has told you that you can take it) for fever or pain. and straight to ER if unable to lower temp less than 101.0 after medication given *Warm salt water gargles may help to soothe the throat *Throat Lozenges? *Warm fluids like tea with honey may help to soothe the throat? *Sleep elevated *Humidifier/Vaporizer Follow up IMMEDIATELY for new or worsening symptoms or no Noticeable improvement over the next 48-72 hours. 911 for difficulty breathing or swallowing Clinical Impressions Clinical Impression: Encounter to obtain excuse from work Stand Alone Forms Stand Alone Forms: Work/School Release Discharge ED Provider: Sharon Thomas [facility] [place] General Stated complaint: Covid test Mode of Arrival: Ambulatory Source of Information: Patient Limitations: No Limitations Time Seen by Provider: 01/30/22 16:33 Description of Symptoms (Recalled from Triage Doc. by RN): PATIENT REPORTS HE RECENTLY HAD COVID AND IS STILL HAVING SOME SYMPTOMS. HE WANTS CHECKED SO HE CAN RETURN TO WORK HEENT Symptoms (Recalled from RN notes): No Resp Symptoms (Recalled from RN notes): No Skin Symptoms (Recalled from RN notes): No MS Symptoms (Recalled from RN notes): No Functional Status (Recalled from RN notes): WNL History of Present Illness Provider Complaint: Patient states that he was positive for COVID last Sunday State that his Job told him that he could come back on Sunday but he was still having a fever and tried to get in somewhere but no one could get him in due to COVID State that he wasnt able to return and last fever was Sunday States that he hasnt had fever since and no longer having symptoms but they want him to get a note so he can return to work Related Data Home Medications Medication Instructions Recorded Confirmed fluticasone furoate 100 1 inh IH DAILY Asthma 01/07/21 01/07/21 mcg-vilanterol 25 mcg/dose inhalation powder Previous Rx's Medication Instructions Recorded ibuprofen 600 mg tablet 600 mg PO Q6HP PRN Moderate Pain 01/07/21 #20 tabs ytjdshgjlmbvqhh-qpoqljlpeaofpll-XI 5 - 10 ml PO Q46H PRN Cough #200 mL 02/24/21 2 mg-30 mg-10 mg/5 mL oral syrup ondansetron 4 mg disintegrating 4 mg PO TIDP PRN Nausea #20 tabs 02/24/21 tablet azithromycin 250 mg tablet 250 mg PO UD DOSE PK #6 tabs 08/15/21 gnyvacezvjmvchc-qfxmvlcvzlkjfqg-RG 5 ml PO Q6HP PRN Cough #240 mL 08/15/21 2 mg-30 mg-10 mg/5 mL oral syrup cyclobenzaprine 10 mg tablet 10 mg PO Q8HP PRN Muscle Spasm #15 09/22/21 tabs etodolac 200 mg capsule 200 mg PO Q8HP PRN Moderate
[2022-01-30 16:45] VITALS: BP 139/87; PULSE 81; RESP 19; TEMP 36.7; O2SAT 98
== END 2022-01-30 16:48 | disposition home or self-care (01) ==
PROVIDERS: Emergency Provider Nurse Practitioner
DX: Z02.89 Encounter for other administrative examinations (principal); Z86.16 Personal history of COVID-19
CPT/HCPCS: 99211; G0463

== ENCOUNTER 2024-04-23 12:04 | Outpatient (CLI) | payer BC, SELFPAY ==
[2024-04-23 12:51] LABS: Amphetamine/Metha Screen,Urine Negative ng/ml (<1000); Benzodiazepines Screen,Urine Negative ng/ml (<200)
[2024-04-23 12:52] LABS: Barbiturates Screen,Urine Negative ng/ml (<200)
[2024-04-23 12:53] LABS: Cannabinoid Screen,Urine Negative ng/ml (<50); Cocaine Screen,Urine Negative ng/ml (<300)
[2024-04-23 12:54] LABS: Methadone Screen,Urine Negative ng/ml (<300)
[2024-04-23 12:55] LABS: Opiate Screen,Urine Negative ng/ml (<300); Phencyclidine Screen,Urine Negative ng/ml (<25)
== END 2024-04-23 23:59 | disposition home or self-care (01) ==
LOC: LAB 12:06
PROVIDERS: Visit Provider Registered Nurse Emergency
DX: F90.9 Attention-deficit hyperactivity disorder, unspecified type (principal)
CPT/HCPCS: 80307

== ENCOUNTER 2025-05-05 08:09 | Emergency (ER) | payer SELFPAY ==
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
[2025-05-05 08:20] VITALS: BP 169/81; PULSE 102; RESP 18; TEMP 36.7; O2SAT 97; BMI 29.8
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
[2025-05-05] MEDS: ACETAMINOPHEN 500MG TAB 1000 MG PO (08:42)
[2025-05-05] MEDS: KETOROLAC 15MG/ML VIAL 15 MG IM (08:43)
[2025-05-05 10:16] VITALS: BP 145/91; PULSE 78; RESP 18; TEMP 36.8; O2SAT 98
== END 2025-05-05 10:16 | disposition home or self-care (01) ==
PROVIDERS: Emergency Provider Emergency Medicine
DX: R07.89 Other chest pain (principal); M54.2 Cervicalgia; M25.572 Pain in left ankle and joints of left foot; V47.5XXA Car driver injured in collision with fixed or stationary object in traffic accident, initial encounter
CPT/HCPCS: 70450; 71250; 72125; 72128; 72131; 73030; 73070; 73100; 73110; 73130; 73590; 73610; 96372; 99284; 99285; J1885